=== PATIENT | male | born 1975 | race Caucasian/White ===

== ENCOUNTER 2017-07-18 12:26 | Emergency (ER) | payer SELFPAY ==
--- NOTE | 2017-07-18 14:08 | CPEKG ---
Heart Rate: 62 RR Interval: 968 P-R Interval: 152 QRSD Interval: 100 QT Interval: 416 QTC Interval: 423 P B[place]: 30 QRS [place]ingham: -15 T Wave [place]: 15 EKG Severity - OTHERWISE NORMAL ECG - EKG Impression: SINUS RHYTHM EKG Impression: BORDERLINE LEFT AXIS DEVIATION Electronically Signed By: Raymundo Moody 18-Jul-2017 15:19:09
[2017-07-18 14:14] LABS: PLATELET COUNT 279 10^3/uL (150-400)
--- NOTE | 2017-07-18 14:31 | EDPHY ---
H & P Stated Complaint: Last night slurred speech, SOB, Bilateral numbness. Source: Patient Exam Limitations: No limitations - Personal History Current Tetanus/Diphtheria Vaccine: Unsure Current Tetanus Diphtheria and Acellular Pertussis (TDAP): Unsure - Medical/Surgical History Hx Asthma: No Hx Chronic Respiratory Disease: No Hx Diabetes: No Hx Cardiac Disease: No Hx Renal Disease: No Hx Cirrhosis: No Hx Alcoholism: No Hx HIV/AIDS: No Hx Splenectomy or Spleen Trauma: No Other PMH: appendectomy, herniated disc, fractured skull x 2 as a child - Social History Smoking Status: Former smoker Time Seen by Provider: 07/18/17 14:31 HPI/ROS: HPI: This is a 41-year-old male presents with Chief Complaint: Last night slurred speech, SOB, Bilateral numbness. 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 He reports that he was sitting down working on his computer when he started to feel anxious, shortness of breath and bilateral hand and arm numbness that lasted approximately 45 min and self-resolved. He denies any fever/chills/cough/chest pain/shortness of breath/palpitations. Patient reports that his father recently had a CABG x3 and his grandfather had 2 heart attacks in his 40. Does not have a primary care provider. Generally healthy. History of migraine headache/panic attack. Modifying Factors: None Comment: ROS: see HPI Constitutional: No fever, no chills, no weight loss Eyes: No blurred vision Respiratory: No shortness of breath, no cough Cardiovascular: No chest pain Gastrointestinal: No nausea, no vomiting, no diarrhea Genitourinary: No dysuria Extremities: No myalgias Neurologic: No weakness, no numbness Skin: No rashes Hematologic: No bruising, no bleeding MEDICAL/SURGICAL/SOCIAL HISTORY: Medical history: Generally healthy. Does not take any regular medications. Surgical history: appendectomy, herniated disc, fractured skull x 2 as a child Social history: with children. Employed. CONSTITUTIONAL: Extremely well-appearing polite and cooperative adult male, awake and alert, no obvious distress HEENT: Atraumatic and normocephalic, PERRL, EOMI. Tympanic membranes clear. Oropharynx clear, no exudate and moist pink mucosa. Airway patent. No lymphadenopathy. No meningismus. No carotid bruits. Cardiovascular: Normal S1/S2, regular rate, regular rhythm, without murmur rub or gallop. PULMONARY/CHEST: Symmetrical and nontender. Clear to auscultation bilaterally. Good air movement. No accessory muscle usage. ABDOMEN: Soft, nondistended, nontender, no rebound, no guarding, no peritoneal signs, no masses or organomegaly. No CVAT. EXTREMITIES: 2/2 pulses, strength 5/5, no deformities, no clubbing, no cyanosis or edema. NEUROLOGICAL: no focal neuro deficits. GCS 15. Cranial Nerves 2 through 12 grossly intact. Normal [id number]. Normal [id number]. Normal Romberg test. Speech clear. SKIN: Warm and dry, no erythema. no rash. Good capillary refill. (Yanely David) Constitutional: Initial Vital Signs Temperature (C) 36.6 C 07/18/17 12:31 Heart Rate 66 07/18/17 12:31 Respiratory Rate 16 07/18/17 12:31 Blood Pressure 134/89 H 07/18/17 12:31 O2 Sat (%) 96 07/18/17 12:31 O2 Delivery Mode Room Air Allergies/Adverse Reactions: No Known Allergies Allergy (Verified 07/18/17 12:34) Home Medications: Medication Instructions Recorded AZITHROMYCIN [Z-PACK] 250 mg PO DAILY #6 tab 07/18/17 Fluticasone Nasal [Flonase Nasal 1 sprays NASAL DAILY #1 mdi 07/18/17 [place] (RX)] Medical Decision Making - Diagnostics EKG Interpretation: EKG reviewed by me shows normal sinus rhythm with normal interval. There is left axis deviation. QRS is otherwise normal. There is no significant ST elevation or depression. No arrhythmia. The rate is 62 (Fransisco,Raymundo S) Imaging Results: Imaging Impressions Head CT 07/18/17 14:17 Impression: 1. Moderate bilateral maxillary and right ethmoid sinusitis with fluid. 2. Otherwise normal CT brain without contrast. Findings and recommendations discussed with Emergency Department physician, Yanely David PAC at 15:20 hour, 07/18/2017. Final report concurs with initial preliminary interpretation. Chest X-Ray 07/18/17 14:26 Impression: Stable and normal. ED Course/Re-evaluation: EKG, labs, head CT scan, chest x-ray ordered Vital signs reviewed upon arrival in stable No neurological deficits. EKG showed no acute ischemic changes and troponin unremarkable Called by radiologist who advised head CT scan shows no acute cranial process does show bilateral maxillary sinusitis. Rx Azithromycin and Flonase Chest x-ray my read shows no opacity, no effusion, no pneumothorax, no widened mediastinum. Patient please all symptoms may be due to anxiety. Laboratory workup is unremarkable. Low yield for TIA/CVA due to no risk factors. 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 Past for primary care provider to establish care and follow up outpatient. This patient was seen under the supervision of my secondary supervising physician. I evaluated care for this patient independently. (Yanely David) I did not see this patient while he was in the emergency department. However his care was discussed with the PA while the patient was in the department. I agree with treatment plan and management (Raymundo Moody) Differential Diagnosis: Dizziness including but not limited to peripheral and central causes of vertigo , orthostatic causes including dehydration, and blood loss. (Yanely David) - Data Points Laboratory Results: Laboratory Results 07/18/17 14:00 07/18/17 14:00 07/18/17 07/18/17 07/18/17 14:00 14:00 14:00 WBC RBC Hgb Hct MCV MCH MCHC RDW Plt Count MPV Neut % (Auto) Lymph % (Auto) [place] % (Auto) Eos % (Auto) Baso % (Auto) Nucleat RBC Rel Count Absolute Neuts (auto) Absolute Lymphs (auto) Absolute Monos (auto) Absolute Eos (auto) Absolute Basos (auto) Absolute Nucleated RBC Immature Gran % Immature Gran # PT 12.9 SEC SEC (12.0-15.0) INR 0.95 (0.83-1.16) APTT 32.2 SEC SEC (23.0-38.0) Turbidity Cancelled Sodium 143 mEq/L mEq/L Cancelled (135-145) Potassium 4.3 mEq/L mEq/L Cancelled (3.5-5.2) Chloride 103 mEq/L mEq/L Cancelled (97-110) Carbon Dioxide 25 mEq/l mEq/l Cancelled (22-31) Anion Gap 15 mEq/L mEq/L Cancelled (8-16) BUN 11 mg/dL mg/dL Cancelled (7-23) Creatinine 0.8 mg/dL mg/dL Cancelled (0.7-1.3) Estimated GFR > 60 Cancelled Glucose 79 mg/dL mg/dL Cancelled (70-100) Calcium 9.7 mg/dL mg/dL Cancelled (8.5-10.4) Magnesium 2.0 mg/dL mg/dL (1.6-2.3) Total Bilirubin 0.6 mg/dL mg/dL (0.1-1.4) Conjugated Bilirubin 0.3 mg/dL mg/dL (0.0-0.5) Unconjugated Bilirubin 0.3 mg/dL mg/dL (0.0-1.1) AST 35 IU/L IU/L (17-59) ALT 57 IU/L IU/L (21-72) Alkaline Phosphatase 76 IU/L IU/L (38-126) Troponin I < 0.012 ng/mL ng/mL Cancelled (0.000-0.034) Total Protein 8.0 g/dL g/dL (6.3-8.2) Albumin 4.6 g/dL g/dL (3.5-5.0) Specimen Hemolysis Cancelled 07/18/17 14:00 WBC 8.54 10^3/uL 10^3/uL (3.80-9.50) RBC 5.60 10^6/uL 10^6/uL (4.40-6.38) Hgb 16.4 g/dL g/dL (13.7-17.5) Hct 47.6 % % (40.0-51.0) MCV 85.0 fL fL (81.5-99.8) MCH 29.3 pg pg (27.9-34.1) MCHC 34.5 g/dL g/dL (32.4-36.7) RDW 12.8 % % (11.5-15.2) Plt Count 279 10^3/uL 10^3/uL (150-400) MPV 8.4 fL L fL (8.7-11.7) Neut % (Auto) 54.3 % % (39.3-74.2) Lymph % (Auto) 35.6 % % (15.0-45.0) [place] % (Auto) 7.1 % % (4.5-13.0) Eos % (Auto) 2.3 % % (0.6-7.6) Baso % (Auto) 0.5 % % (0.3-1.7) Nucleat RBC Rel Count 0.0 % % (0.0-0.2) Absolute Neuts (auto) 4.63 10^3/uL 10^3/uL (1.70-6.50) Absolute Lymphs (auto) 3.04 10^3/uL H 10^3/uL (1.00-3.00) Absolute Monos (auto) 0.61 10^3/uL 10^3/uL (0.30-0.80) Absolute Eos (auto) 0.20 10^3/uL 10^3/uL (0.03-0.40) Absolute Basos (auto) 0.04 10^3/uL 10^3/uL (0.02-0.10) Absolute Nucleated RBC 0.00 10^3/uL 10^3/uL (0-0.01) Immature Gran % 0.2 % % (0.0-1.1) Immature Gran # 0.02 10^3/uL 10^3/uL (0.00-0.10) PT INR APTT Turbidity Sodium Potassium Chloride Carbon Dioxide Anion Gap BUN Creatinine Estimated GFR Glucose Calcium Magnesium Total Bilirubin Conjugated Bilirubin Unconjugated Bilirubin AST ALT Alkaline Phosphatase Troponin I Total Protein Albumin Specimen Hemolysis Departure - Departure Disposition: Home, Routine, Self-Care Clinical Impression: Dizziness Condition: Good Instructions: Transient Ischemic Attack (ED), Anxiety (ED) Additional Instructions: Head CT scan today shows no acute intracranial process. It does show moderate sinusitis. Start taking azithromycin and Flonase nasal spray. Please establish care with primary care provider within the next 1-2 weeks. Return to the emergency room; if you develop slurred speech, weakness, altered mental status. Referrals: Ann Jauregui MD [[facility] [place] Primary Care Provider] - As per Instructions Prescriptions: AZITHROMYCIN [Z-PACK] 250 mg PO DAILY #6 tab Fluticasone Nasal [Flonase Nasal [place] (RX)] 1 sprays NASAL DAILY #1 mdi
[2017-07-18 14:34] LABS: INR 0.95 (0.83-1.16); PROTIME(PATIENT) 12.9 SEC (12.0-15.0)
[2017-07-18 15:33] VITALS: BP 121/85; PULSE 68; RESP 17; TEMP 97.7; O2SAT 94
== END 2017-07-18 15:33 | disposition home or self-care (01) ==
DX: R42 Dizziness and giddiness (principal); Z87.891 Personal history of nicotine dependence